=== PATIENT | female | born 1935 | race Caucasian/White ===

== ENCOUNTER 2018-09-11 10:31 | Emergency (ER) | payer MEDICAID, OTHER ==
[~2018-09-11] VITALS: Ht 160 cm; Wt 90.7 kg
[~2018-09-11 10:31] MED LIST: AMLO5TAB13 PO; CARV3.1240 PO; GABA300C10 PO; LEVO200T7 PO; RANI-226 PO; SIMV-8; TRIA75TA66 PO
[2018-09-11] MEDS ORDERED: ALBUTEROL SULF 2.5 MG/0.5ML(0.5%) NEB SOLN NEB ONE (11:15)
[2018-09-11] MEDS ORDERED: FUROSEMIDE 40 MG/4 ML VIAL IV ONE (11:15)
[2018-09-11] MEDS ORDERED: IPRATROPIUM BROM 0.5 MG/2.5ML INH SOL NEB ONE (11:15)
[2018-09-11] MEDS ORDERED: methylPREDNISolone SOD SUCC 125 MG/2 ML VL IV ONE (11:15)
[2018-09-11 11:23] LABS: Basophils # (auto) 0 uL; Basophils % (auto) 0.2 % (0.0-2.0); Eosinophils # (auto) 0 uL; Eosinophils % (auto) 0.1 % (0.0-7.0); Hematocrit 42.8 % (36.0-46.0); Hemoglobin 14.1 g/dL (12.2-16.2); Lymphocytes # (auto) 0.4 uL; Lymphocytes % (auto) 2.8 % (10.0-50.0); Mean Corpuscular Hemoglobin 31.1 pg (28.0-32.0); Mean Corpuscular Hgb Conc. 32.9 g/dL (32.0-36.0); Mean Corpuscular Volume 94.5 fL (80.0-100.0); Monocytes # (auto) 0.9 uL; Monocytes % (auto) 5.9 % (0.0-12.0); Neutrophils # (auto) 13.8 uL; Platelet Count (auto) 189 10^3/uL (140-450); Red Blood Cells 4.53 10^6/uL (4.0-5.20); Red Cell Distribution Width 15.4 % (11.8-14.3); White Blood Cell 15.2 10^3/uL (4.4-10.8)
[2018-09-11 11:35] LABS: Albumin 3.4 g/dL (3.4-5.0); Calcium 9.7 mg/dL (8.5-10.1); Potassium 3.9 mmol/L (3.5-5.1)
[2018-09-11 11:40] LABS: BUN/Creatinine Ratio 19.4; Bilirubin, Total 0.9 mg/dL (0.2-1.0); Total Protein 7.3 g/dL (6.4-8.2)
[2018-09-11] MEDS ORDERED: ENOXAPARIN SOD 100 MG/1 ML SYRINGE SC ONE (12:00)
[2018-09-11] MEDS ORDERED: ONDANSETRON HCL 4 MG/2 ML VIAL IV ONE (13:00)
[2018-09-11] MEDS ORDERED: MORPHINE SULF INJ 2 MG/ML SYRINGE 1ML IV ONE (13:00)
[2018-09-11 14:01] LABS: Urine Bacteria NONE SEEN /hpf (None Seen); Urine Blood Negative /uL (Negative); Urine Mucus FEW (None Seen); Urine Specific Gravity 1.011 (1.001-1.035); Urine WBC 1 /hpf (0 - 5)
[2018-09-11] MEDS ORDERED: HYDR-4683 GT (14:19)
[2018-09-11] MEDS ORDERED: PRED1PAK7 PO (14:22)
[2018-09-11] MEDS ORDERED: LEVO500T21 PO (14:22)
[2018-09-11] MEDS ORDERED: BUDESONIDE (INHALATION) 0.5 MG/2 ML NEB NEB SCH (14:30)
[2018-09-11] MEDS ORDERED: MORPHINE SULFATE 4 MG/ML SYR/VIAL IV PRN (14:30)
[2018-09-11] MEDS: HYDROcodone-ACET 10/325MG TAB PO PRN ×2 (14:46→19:44)
[2018-09-11] MEDS: ALBUTEROL SULF 2.5 MG/0.5ML(0.5%) NEB SOLN NEB SCH ×2 (14:46→18:18)
[2018-09-11] MEDS: IPRATROPIUM BROM 0.5 MG/2.5ML INH SOL NEB SCH ×2 (14:46→18:18)
--- NOTE | 2018-09-11 15:51 | NUR ---
I called [facility] [phone] and left message for Cady regarding the hospice consult for this patient-awaiting return call.
--- NOTE | 2018-09-11 16:09 | NUR ---
I spoke with [employer] Liaison Cady [phone], she has already made arrangements with [facility] [phone]-they will contact family for follow up-I provided nurse Rubina with contact information for [facility].
[2018-09-11 17:14] VITALS: BP 119/49
[2018-09-11] MEDS ORDERED: ACETYLCYSTEINE 10 %(100MG/ML) SOL 4ML NEB SCH (22:00)
== END 2018-09-11 19:55 | disposition home or self-care (01) ==
LOC: EDBD 10:31 → ER 10:34
DX: I11.0 Hypertensive heart disease with heart failure (principal); I50.9 Heart failure, unspecified; E66.9 Obesity, unspecified; R79.89 Other specified abnormal findings of blood chemistry; E78.5 Hyperlipidemia, unspecified; Z86.39 Personal history of other endocrine, nutritional and metabolic disease; Z68.35 Body mass index [BMI] 35.0-35.9, adult; Z90.49 Acquired absence of other specified parts of digestive tract; Z90.710 Acquired absence of both cervix and uterus
CPT/HCPCS: 36415; 71045; 72192; 73552; 73562; 73590; 73610; 80053; 81001; 83605; 83880; 84484; 85025; 87040; 93005; 94640; 94761; 96372; 96374; 96375; 99285; J1650; J1940; J2270; J2405; J2930; J7611; J7644